=== PATIENT | female | born 1950 | race African-American/Black ===

== ENCOUNTER 2017-09-14 08:32 | Emergency (ER) | payer MEDICARE ==
--- NOTE | 2017-09-14 09:26 | RAD ---
RIGHT FOOT 3 VIEWS: Date: 09/14/17 HISTORY: 67-year-old female with right foot pain following a trip and fall. FINDINGS: Degenerative and osteoarthrosis changes are noted of the right foot. No evidence for acute fracture. IMPRESSION: Degenerative changes without acute fracture or dislocation. POS: MARIA E
--- NOTE | 2017-09-14 09:27 | RAD ---
RADIOGRAPH CHEST 2 VIEWS: HISTORY: 67-year-old female with acute traumatic chest pain from fall. FINDINGS: The thoracic aorta is tortuous and ectatic. There is no evidence of air space density, pneumothorax, or pulmonary edema. There is no cardiomegaly or pleural effusion. There are sternotomy wires, and multiple surgical clips in the anterior mediastinum. IMPRESSION: 1. No acute cardiopulmonary findings. 2. Ectasia of thoracic aorta. 3. Status post coronary artery bypass graft surgery as evidence for coronary atherosclerotic disease . callie [] POS: MARIA E
== END 2017-09-14 09:44 | disposition home or self-care (01) ==
LOC: ERS 08:32
DX: S23.41XA Sprain of ribs, initial encounter (principal); S90.31XA Contusion of right foot, initial encounter; I48.91 Unspecified atrial fibrillation; I11.0 Hypertensive heart disease with heart failure; I50.9 Heart failure, unspecified; I25.10 Atherosclerotic heart disease of native coronary artery without angina pectoris; D86.9 Sarcoidosis, unspecified; E11.9 Type 2 diabetes mellitus without complications; E78.5 Hyperlipidemia, unspecified; J45.909 Unspecified asthma, uncomplicated; W01.0XXA Fall on same level from slipping, tripping and stumbling without subsequent striking against object, initial encounter
CPT/HCPCS: 71020

== ENCOUNTER 2018-10-05 10:03 | Emergency (ER) | payer MEDICARE ==
--- NOTE | 2018-10-05 11:59 | RAD ---
2 VIEW CHEST: Date: 10/05/18 COMPARISON: 09/14/17. INDICATION: Cough with chest pain. FINDINGS: There is mild interstitial prominence of the perihilar distribution bilaterally. No effusion or discr ete pneumothorax. Post sternotomy change present. Cardiomediastinal silhouette is similar. IMPRESSION: Findings favoring interstitial edema. The possibility of pneumonitis is not excluded. Correlate clini margie. Imaging follow-up may be obtained for continued assessment. POS: MARIA E
== END 2018-10-05 11:45 | disposition home or self-care (01) ==
LOC: SCSER 10:03
DX: R05 Cough (principal); R07.2 Precordial pain; I48.91 Unspecified atrial fibrillation; I25.10 Atherosclerotic heart disease of native coronary artery without angina pectoris; E78.5 Hyperlipidemia, unspecified; J45.909 Unspecified asthma, uncomplicated
CPT/HCPCS: 71046; 87804; 93005

== ENCOUNTER 2019-11-20 13:24 | Inpatient (IN) | payer MEDICARE ==
--- NOTE | 2019-11-20 15:52 | RAD ---
Exam: Chest one view HISTORY:Fever. Chills. Weakness Comparison: 12/19/2016 FINDINGS: Cardiac silhouette:Upper normal cardiac silhouette. Stable sternotomy wires. Aorta: Stable elongation of the aorta with atherosclerosis of the aortic knob Pulmonary vessels: Normal Costophrenic angles: Clear LUNGS: No masses or consolidation. Stable calcified lymph nodes in the left hilum. Pneumothorax: None Osseous abnormalities: None IMPRESSION: 1. No acute cardiopulmonary process. 2. Atherosclerosis.
[2019-11-20] MEDS ORDERED: Iopamidol-370 76% 500 ML 1 ML ONE (15:54)
[2019-11-20] MEDS ORDERED: Acetaminophen 500 MG TAB ONE (15:58)
[2019-11-20 16:21] LABS: Hemoglobin 14.5 g/dL (12.0-16.0); Mean Corpuscular HGB CONC 34.9 g/dL (32.0-36.0); Mean Corpuscular Hemoglobin 33.5 pg (27.0-31.0); Mean Corpuscular Volume 96.1 fL (78.0-98.0); Mean Platelet Volume 7.4 fL (7.4-10.4); Platelet Count 175 thou/uL (130-400); Red Blood Cell (RBC) Count 4.32 mill/uL (4.20-5.40); White Blood Cell (WBC) Count 17.1 thou/uL (4.8-10.8)
[2019-11-20 16:43] LABS: Band 12 % (5-11); Lymphocytes 6 % (21-51); MDiff Complete? YES; Monocytes 4 % (0-10); Neutrophil 78 % (42-75); Platelet Morphology Comment Appears Adequate; RBC Morphology Normal
[2019-11-20 16:46] LABS: ALT (SGPT) 11 U/L (8-55); AST (SGOT) 14 U/L (5-34); Alkaline Phosphatase 64 U/L (40-110); Anion Gap 17 mmol/L (10-20); BUN (Urea Nitrogen) 13 mg/dL (9.8-20.1); Bilirubin, Total 2.2 mg/dL (0.2-1.2); Calc. Creatinine Clearance 0 mL/min (70-130); Calcium 9.5 mg/dL (7.8-10.44); Carbon Dioxide 22 mmol/L (23-31); Chloride 101 mmol/L (98-107); Estimated GFR-MDRD 65; Globulin 2.8 g/dL (2.4-3.5); Glucose 170 mg/dL (83-110); Potassium 3.1 mmol/L (3.5-5.1); Protein, Total 6.8 g/dL (6.0-8.3); Sodium 137 mmol/L (136-145)
--- NOTE | 2019-11-20 17:11 | CT ---
CT OF THE ABDOMEN AND PELVIS WITH IV CONTRAST INDICATION: Abdominal pain with fever and weakness COMPARISON: None FINDINGS: ABDOMEN: Lung bases: There are calcified lymph nodes within the left hilar region. There are prominent coronar y artery and thoracic aortic calcifications. Liver: No focal lesion. Gallbladder: There are numerous stones within the gallbladder. Pancreas: Normal. Adrenal glands: Normal. Spleen: There are 2 small cysts within the spleen. One of the largest measures 2 cm on image 16 of se ramon 2. Kidneys and ureters: Normal. No hydronephrosis. Vasculature: There are mild vascular calcifications seen involving the visualized vasculature. Lymph nodes:No lymphadenopathy. Free fluid in abdomen:No free fluid is evident. PELVIS: Small and large bowel: Normal Appendix:Not definitely seen Bladder: Normal. Rectal and perirectal soft tissues:Normal. Reproductive structures: Not visualized, presumed to be surgically absent Free fluid in pelvis: No free fluid is evident. Lymphadenopathy pelvis: No lymphadenopathy is evident. Osseous structures: There are bilateral pars defects at L5 with grade 1 anterolisthesis. There is sc attered degenerative and osteoarthritic changes. Soft tissues:Normal. IMPRESSION: 1. No definite acute abnormality demonstrated. 2. Cholelithiasis 3. Splenic cysts 4. Bilateral pars defects at L5 with grade 1 anterolisthesis. 5. Findings of prior granulomatous disease 6. Prominent vascular calcifications of the coronary artery and thoracic aorta.
[2019-11-20] MEDS ORDERED: Cefepime 2 GM in Sodium Chloride 0.9% 100 ML IVPB ONE (17:45)
[2019-11-20] MEDS ORDERED: Sodium Chloride 0.9% 1,000 ML IV SCH (17:45)
[2019-11-20] MEDS ORDERED: Vancomycin HCl 1.75 GM in Sodium Chloride 0.9% 500 ML IVPB ONE (17:45)
[2019-11-20 18:15] LABS: Bilirubin Negative (Negative); Blood, Urine Negative (Negative); Clarity Clear (Clear); Glucose, Urine (Dipstick) Normal (Negative); Leukocyte Negative Leu/uL (Negative); Nitrite Negative (Negative); Protein, Urine (Dipstick) Negative (Neg-Trace); Urobilinogen Normal mg/dL (Less than 2)
--- NOTE | 2019-11-20 18:55 | PDOC.FPRHP ---
- History of Present Illness Chief Complaint: Weakness History of Present Illness: Patient is a 69 y/o female who presents to the ED for a 1D history of weakness and shaking chills. The patient states that she felt at her baseline when she awoke earlier this morning, but that several hours later she began to feel shaking chills and generalized weakness, which prompted her to stay in bed for much of the day. The addition of multiple blankets did not stop her shaking chills. This has never happened to her in the past, and she denied any additional symptoms, specifically with regard to JOHNSON, visual disturbances, auditory disturbances, rhinorrhea, epistaxis, sinus congestion, N/V/ABD Pain, constipation, dysuria, hematuria, new-onset rashes or ulcers, itching, myalgias , trauma/falls, recent illnesses or sick contacts. She did admit to frequent diarrhea, but states that this at her baseline. Patient states that she received her flu shot this year, and has not had any recent travel or changes in diet. ED Course: s/p Vancomycin, Cefepime, NS Bolus @ 30 ml/kg WBCs: 17.1 LA: 3.3 > 3.4 Influenza A&B: Negative CT ABD/Pelvis: NAF - Allergies/Adverse Reactions Allergies Allergy/AdvReac Type Severity Reaction Status Date / Time bacitracin Allergy Verified 08/27/14 05:18 latex Allergy "break Verified 03/21/15 13:37 out; tongue swells" neomycin Allergy Verified 08/27/14 05:18 polymyxin B Allergy Verified 08/27/14 05:18 - Home Medications Medication Instructions Recorded Confirmed Type Atorvastatin Calcium [Lipitor] 40 mg PO QPM 08/27/14 12/19/16 History Ezetimibe [Zetia] 10 mg PO HS 08/27/14 12/19/16 History Isosorbide Mononitrate [Isosorbide 30 mg PO DAILY 08/27/14 12/19/16 History Mononitrate ER] Metoprolol Succinate [Toprol XL] 50 mg PO DAILY #0 tab 08/27/14 12/19/16 Rx Valsartan/Hydrochlorothiazide 1 tablet PO DAILY 08/27/14 12/19/16 History [Diovan HCT] predniSONE 10 mg PO QAM-WM 08/27/14 12/19/16 History Aspirin [Aspirin EC] 81 mg PO DAILY 03/21/15 12/19/16 History Diltiazem HCl [Taztia XT] 1 cap PO DAILY 12/19/16 12/19/16 History Linagliptin [Tradjenta] 5 mg PO DAILY 12/19/16 12/19/16 History Nitroglycerin [Nitrostat] 0.4 mg PO PRN PRN 12/19/16 12/19/16 History metFORMIN HCl [Metformin ER 2,000 mg PO HS 12/19/16 12/19/16 History Gastric] - History PMHx: Sarcoidosis, DM2, HTN, Hypothyroidism, CHF PSHx: CABG (2005) FHx: Sarcoidosis (Daughter) Colon Cancer (Mother) Social: Denies x3 Code: Full - Review of Systems General: reports: fever/chills, fatigue Eyes: denies: vision changes ENT: denies: nasal congestion, rhinorrhea Respiratory: denies: cough, congestion, shortness of breath Cardiovascular: denies: chest pain, palpitation Gastrointestinal: reports: diarrhea. denies: nausea, vomiting, constipation, abdominal pain, GI bleeding Genitourinary: denies: dysuria, discharge Skin: denies: rashes, lesions, itching Musculoskeletal: denies: swelling Neurological: denies: syncope - Vital signs BP: [111/69] HR: [78] RR: [21] Tmax: [100.7] Pox: [97]% on [Room] Wt: [73 kg] - Physical Exam Constitutional: NAD, awake, alert and oriented, well developed HEENT: normocephalic and atraumatic, PERRLA, conjunctiva clear, no scleral icterus, grossly normal vision, TM's clear and intact, grossly normal hearing, normal nasal mucosa, MMM, oropharynx clear, other (Poor Dentition) Neck: supple, FROM, trachea midline, no LAD Chest: no-tender to palpation, no lesions Heart: RRR, normal S1/S2, no murmurs/rubs/gallops, pulses present, no edema Lungs: CTAB, no respiratory distress, good air movement, no rales/rhonchi, no wheezing, no retractions Abdomen: soft, non-tender, bowel sounds present, no masses/distention, no hernias Musculoskeletal: normal structure, ROM grossly normal Neurological: no focal deficit, normal sensation Skin: no rash/lesions, no jaundice Heme/Lymphatic: no unusual bruising or bleeding, no purpura, no petechia, no LAD Psychiatric: normal mood and affect, good judgment and insight, intact recent and remote memory FMR H&P: Results - Labs Result Diagrams: 11/20/19 16:08 11/20/19 16:08 Lab results: WBC 17.1 thou/uL (4.8-10.8) H 11/20/19 16:08 Hgb 14.5 g/dL (12.0-16.0) 11/20/19 16:08 Hct 41.6 % (36.0-47.0) 11/20/19 16:08 MCV 96.1 fL (78.0-98.0) 11/20/19 16:08 Plt Count 175 thou/uL (130-400) 11/20/19 16:08 Band Neuts % (Manual) 12 % (5-11) H 11/20/19 16:08 Sodium 137 mmol/L (136-145) 11/20/19 16:08 Potassium 3.1 mmol/L (3.5-5.1) L 11/20/19 16:08 Chloride 101 mmol/L (98-107) 11/20/19 16:08 Carbon Dioxide 22 mmol/L (23-31) L 11/20/19 16:08 BUN 13 mg/dL (9.8-20.1) 11/20/19 16:08 Creatinine 1.02 mg/dL (0.6-1.1) 11/20/19 16:08 Glucose 170 mg/dL (83-110) H 11/20/19 16:08 Lactic Acid 3.3 mmol/L (0.5-2.2) H 11/20/19 16:08 Calcium 9.5 mg/dL (7.8-10.44) 11/20/19 16:08 Total Bilirubin 2.2 mg/dL (0.2-1.2) H 11/20/19 16:08 AST 14 U/L (5-34) 11/20/19 16:08 ALT 11 U/L (8-55) 11/20/19 16:08 Alkaline Phosphatase 64 U/L (40-110) 11/20/19 16:08 Serum Total Protein 6.8 g/dL (6.0-8.3) 11/20/19 16:08 Albumin 4.0 g/dL (3.4-4.8) 11/20/19 16:08 Lipase 12 U/L (8-78) 11/20/19 16:08 Urine Ketones Negative mg/dL (Negative) 11/20/19 17:56 Urine Blood Negative (Negative) 11/20/19 17:56 Urine Nitrite Negative (Negative) 11/20/19 17:56 Ur Leukocyte Esterase Negative Ce/uL (Negative) 11/20/19 17:56 - Radiology Interpretation CT scan - abdomen Status: report reviewed by me (EDIS) FMR H&P: A/P - Problem List (1) Viral syndrome Current Visit: Yes Status: Acute (2) CAD (coronary artery disease) Current Visit: No Status: Chronic Code(s): I25.10 - ATHSCL HEART DISEASE OF [place] CORONARY ARTERY W/O ANG PCTRS Qualifiers: Coronary Disease-Associated Artery/Lesion type: bypass graft [place] vs. transplanted heart: [place] heart Associated angina: with stable angina Qualified Code(s): I25.708 - Atherosclerosis of coronary artery bypass graft(s) , unspecified, with other forms of angina pectoris (3) HTN (hypertension) Current Visit: No Status: Chronic Code(s): I10 - ESSENTIAL (PRIMARY) HYPERTENSION Qualifiers: Hypertension type: essential hypertension Qualified Code(s): I10 - Essential (primary) hypertension (4) Sarcoidosis Current Visit: No Status: Chronic Code(s): D86.9 - SARCOIDOSIS, UNSPECIFIED (5) Diabetes mellitus Current Visit: No Status: Chronic Code(s): E11.9 - TYPE 2 DIABETES MELLITUS WITHOUT COMPLICATIONS Qualifiers: Diabetes mellitus type: type 2 Diabetes mellitus mcc insulin use: without mcc use Diabetes mellitus complication status: with unspecified complications (6) Hypokalemia Current Visit: Yes Status: Acute Code(s): E87.6 - HYPOKALEMIA - Plan Patient is a 69 y/o female who presents to the ED for evaluation of weakness and shaking chills. 1. Viral Syndrome, Acute -Patient met SIRS Criteria while in ED - no additional complaints other than weakness and chills -s/p Vancomycin, Cefepime and NS @ 30 ml/kg -Physical exam unremarkable -CT ABD/Pelvis: NAF -Influenza A&B: Negative -UA: WNL -UCx: Pending -BCx: Pending -Procal: Pending -Lactic Acid: Pending -RVP: Pending 2. Sarcoidosis -Per patient, stable and well controlled with daily Predisone 10 mg -Will initiate Stress Dosing of Prednisone 40 mg X5 in AM 3. DM2 -Will continue home medication regimen -Accuchecks ACHS -Hypoglycemia Protocol 4. HTN -Will continue home medication regimen 5. CAD -Will continue home medication regimen 6. Hypokalemia -s/p K-Dur 60 mEq PO -Will continue to monitor PCP: JUVENTINO Holt Code: Full Diet: CC Activity: Ambulate w/ Assist IVF: LR @ 110 ml/hr VTE PPx: SCDs and Lovenox Dispo: Patient is stable and admitted to the Medical Floor for observation due to suspected Acute Viral Syndrome. Will continue fluid resuscitation and Stress Dosing of Prednisone as per above. Await lab results and tailor plan of care accordingly. Expected LOS < 48H. FMR H&P: Upper Level - Plan Date/Time: 11/20/19 1032 PCP: Jonathon HPI: This is a 69 yo F w/ PMH including CAD s/p CABG 2016, DM2, HTN, and Sarcoidosis who came into the ED tonight for evaluation of general malaise. She states maybe some chills but no fevers, sweats. Denies cough or sinus congestion. Denies burning or blood with urination. Denies abdominal pain although she does have chronic diarrhea, 2-3 times per day. She has had decreased appetite. She denies blood in stool or changes to her usual pattern. Denies sick contacts, has had flu shot this year. Denies CP or palpitations. Denies weakness affecting one side or the other, facial droop, or disequilibrium. REVIEW OF SYSTEMS: Gen: see hpi Neuro: no numbness/tingling, no weakness, denies headache Eyes: no visual changes ENT: no hearing changes, no sore throat, no runny nose Resp: no cough, no SOB, no wheeze Card: denies chest pain, no palpitations GI: no N/V/D, no abdominal pain : no dysuria, no hematuria MSK: no myalgias, no joint pain/stiffness Skin: no rash, no erythema PHYSICAL EXAMINATION: General: NAD, alert and oriented x3 HEENT: PERRLA, EOMI, normal sclera, oropharynx without erythema or exudate Neck: Supple. Full ROM. Heart/Cardiovascular System: RRR, Cap refill < 3 seconds, no rub, no murmur Lungs/Respiratory System: clear to auscultation bilaterally. No increased work of breathing. Room air. Abdomen/Gastro-Intestinal System: no abdominal tenderness, normal bowel sounds Extremities: Warm extremities. No cyanosis or edema. Neuro: No gross deficits appreciated. CN 2-12 grossly intact. NIHSS 0. No limb drift, no ataxia. Patient able to walk to wall and back but says she just feels weak Psychiatry: Awake, Alert and cooperative with exam Skin: No lesions, rashes, or ulcers Musculoskeletal: Full ROM A/P: # Sepsis 2/2 suspected viral syndrome - check procal, RVP, could be flu although rapid was negative - LA 3.3 -> 3.4 s/p 30mg/kg bolus, WBC 17.9, Tmax 101.7, UA neg - suspect dehydration, high spec grav on urine, decreased appetite today, this and chronic steroids could be source of increased WBC - CT/abd pelv no acute process, cholelithiasis, neg murphys - poor dentition, bacteremia is possible, no murmur on exam - s/p vanc, cefepime in ED will hold on abx for now until source identified # Sarcoidosis - on pred 10mg daily, will stress dose for now - per patient, pulm thinks sarcoidosis is well controlled and she will meet with him next week to discuss tapering off steroids # Hx of CAD - Trend trops # HTN, DM2 - home meds # Hypokalemia - Replete Fluids: LR 110 Code status: full PPx: Lovenox Dispo: Obs Addendum - Attending - Attending Attestation Date/Time: 11/20/19 [id number] I personally evaluated the patient and discussed the management with Dr. Penny I agree with the History, Examination, Assessment and Plan documented above with any addition or exceptions noted below -69 yo F with h/o CAD s/p CABG 2006 , DM2, HTN, and Sarcoidosis who came into the ED tonight for evaluation of general malaise and chills. Denies cough, sinus congestion, dysuria or hematuria , URI symptoms, abdominal pain although she does have chronic diarrhea, 2-3 times per day. She has had decreased appetite. She denies blood in stool or changes to her usual patter. PMH/PSH/Meds/SH reviewed and agree with resident's documentation. T 101.2 in ER P87 BP 134/67 RR19 Exam repeated by me and agree with resident's findings. Labs: WBC=17.1, BUN/Cr=13/1.02, Cmid=187, Lactic acid=3.3, U/A= negative, flu = negative, CXR- no acute findings. A/P: 1) SIRS- no source found. Will check RVP, procal. Blood and urine cultures pending. Received 1 dose of abx in ER; hold further abx for now. 2) DM- continue home meds, 3) HTN- continue home meds.
[2019-11-20 19:15] LABS: Lactic Acid 3.4 mmol/L (0.5-2.2)
[2019-11-20] MEDS ORDERED: Cefepime 2 GM VIAL ONE (20:37)
[2019-11-20] MEDS ORDERED: Potassium Chloride 20 MEQ TAB PO SCH (21:15)
[2019-11-20] MEDS ORDERED: Ondansetron ODT 4 MG TAB PO PRN (22:06)
[2019-11-20] MEDS ORDERED: Dextrose 5% in Water 1,000 ML IV PRN (22:06)
[2019-11-20] MEDS ORDERED: Dextrose 50% Abboject 50 ML SYRINGE SLOW IVP PRN (22:06)
[2019-11-20 22:13] VITALS: BMI 28.5
[2019-11-20] MEDS: Lactated Ringer's 1,000 ML IV SCH (22:24)
[2019-11-20] MEDS ORDERED: Famotidine 20 MG TAB PO SCH (22:30)
[2019-11-20] MEDS ORDERED: predniSONE 20 MG TAB PO SCH (22:45)
[2019-11-20] MEDS: HumaLOG 300 UNITS/3 ML VIAL SC PRN (23:10)
[2019-11-21 06:04] LABS: Lactic Acid 1.2 mmol/L (0.5-2.2)
[2019-11-21 06:07] LABS: Anion Gap 11 mmol/L (10-20); BUN (Urea Nitrogen) 11 mg/dL (9.8-20.1); Calc. Creatinine Clearance 75 mL/min (70-130); Calcium 8.3 mg/dL (7.8-10.44); Carbon Dioxide 22 mmol/L (23-31); Chloride 108 mmol/L (98-107); Estimated GFR-MDRD 83; Glucose 200 mg/dL (83-110); Potassium 3.9 mmol/L (3.5-5.1); Sodium 137 mmol/L (136-145)
[2019-11-21 06:13] LABS: Hemoglobin 12.8 g/dL (12.0-16.0); Mean Corpuscular HGB CONC 34.4 g/dL (32.0-36.0); Mean Corpuscular Hemoglobin 33.7 pg (27.0-31.0); Mean Corpuscular Volume 98.1 fL (78.0-98.0); Platelet Count 162 thou/uL (130-400); RBC Distribution Width 12.2 % (11.5-14.5); Red Blood Cell (RBC) Count 3.81 mill/uL (4.20-5.40)
[2019-11-21 06:37] LABS: Band 2 % (5-11); MDiff Complete? YES; Neutrophil 98 % (42-75); Platelet Morphology Comment Appears Adequate
[2019-11-21] MEDS: Lactated Ringer's 1,000 ML IV SCH ×2 (07:05→19:05)
--- NOTE | 2019-11-21 07:40 | PDOC.FM ---
- Subjective Subjective: pt resting comfortably, denies pain or fever - Objective Vital Signs & Weight: Vital Signs (12 hours) Temp Pulse Resp BP BP Pulse Ox 11/21/19 05:00 98.5 F 91 18 123/73 94 L 11/20/19 22:25 99.0 F 87 18 134/67 94 L 11/20/19 21:55 99.0 F 87 18 134/67 94 L Weight Weight 75.3 kg I&O: 11/20/19 11/21/19 11/22/19 06:59 06:59 06:59 Intake Total 1000 Balance 1000 Result Diagrams: 11/21/19 05:08 11/21/19 05:08 Phys Exam - Physical Examination Constitutional: NAD HEENT: moist MMs Respiratory: clear to auscultation bilateral Cardiovascular: no significant murmur Gastrointestinal: no distention Musculoskeletal: pulses present Neurological: moves all 4 limbs Lymphatic: no nodes Psychiatric: normal affect Skin: no rash Dx/Plan (1) Hypokalemia Code(s): E87.6 - HYPOKALEMIA Status: Acute (2) Viral syndrome Status: Acute (3) Diabetes mellitus Code(s): E11.9 - TYPE 2 DIABETES MELLITUS WITHOUT COMPLICATIONS Status: Chronic Qualifiers: Diabetes mellitus type: type 2 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 insulin use: without middle or intermediate school principal use Diabetes mellitus complication status: with unspecified complications (4) HTN (hypertension) Code(s): I10 - ESSENTIAL (PRIMARY) HYPERTENSION Status: Chronic Qualifiers: Hypertension type: essential hypertension Qualified Code(s): I10 - Essential (primary) hypertension (5) Sarcoidosis Code(s): D86.9 - SARCOIDOSIS, UNSPECIFIED Status: Chronic - Plan Plan: viral syndrome - elevated wbc, RVP neg, CXR neg, UA wnl - LA 3.3 -> 3.4 s/p 30mg/kg bolus, WBC 17.9, Tmax 101.7, procal 6 - CT/abd pelv no acute process, cholelithiasis, neg murphys - restart broad spectrum abx, consider RUQ US Sarcoidosis - on pred 10mg daily, cont stress dose Hx of CAD - trops neg HTN, DM2 - home meds Hypokalemia - Replete Fluids: LR 110 Code status: full PPx: Lovenox Dispo: continue eval and treatment Addendum - Attending - Attending Attestation Date/Time: 11/21/19 2121 I personally evaluated the patient and discussed the management with Dr. Holt I agree with the History, Examination, Assessment and Plan documented above with any addition or exceptions noted below. Patient clinically markedly improved C/O pain Left calf r/o DVT and look further into biliary tract etiology for fever.
[2019-11-21] MEDS: Acetaminophen 325 MG TAB PO PRN (08:42)
[2019-11-21] MEDS ORDERED: Non-Formulary Item 1 EACH (Valsartan/Hydrochlorothiazide [Diovan Hct] 1 TABLET) PO SCH (09:00)
[2019-11-21] MEDS ORDERED: sitaGLIPtin Phosphate 25 MG TAB PO SCH (09:00)
[2019-11-21] MEDS: Valsartan 80 MG TAB PO SCH (10:24)
[2019-11-21] MEDS: Isosorbide Mononitrate (ER) 30 MG TAB PO SCH (10:25)
[2019-11-21] MEDS: Hydrochlorothiazide 25 MG TAB PO SCH (10:25)
[2019-11-21] MEDS: metFORMIN 500 MG TAB PO SCH ×2 (10:26→17:00)
[2019-11-21] MEDS: Aspirin 81 mg Enteric Coated Tablet PO SCH (10:26)
[2019-11-21] MEDS: Potassium Chloride 20 MEQ TAB PO SCH (10:26)
[2019-11-21] MEDS: Alogliptin 6.25 MG TAB PO SCH ×2 (10:26→20:18)
[2019-11-21] MEDS: Enoxaparin Sodium 40 MG/0.4 ML SYRINGE SC SCH (10:29)
[2019-11-21] MEDS: predniSONE 20 MG TAB PO SCH (10:51)
[2019-11-21 11:22] LABS: ALT (SGPT) 9 U/L (8-55); AST (SGOT) 12 U/L (5-34); Albumin 3.3 g/dL (3.4-4.8); Alkaline Phosphatase 54 U/L (40-110); Anion Gap 12 mmol/L (10-20); BUN (Urea Nitrogen) 12 mg/dL (9.8-20.1); Bilirubin, Total 2.4 mg/dL (0.2-1.2); Calc. Creatinine Clearance 75 mL/min (70-130); Calcium 8.6 mg/dL (7.8-10.44); Carbon Dioxide 21 mmol/L (23-31); Chloride 106 mmol/L (98-107); Estimated GFR-MDRD 83; Globulin 2.5 g/dL (2.4-3.5); Glucose 275 mg/dL (83-110); Lipase 11 U/L (8-78); Potassium 3.8 mmol/L (3.5-5.1); Protein, Total 5.8 g/dL (6.0-8.3); Sodium 135 mmol/L (136-145)
[2019-11-21] MEDS ORDERED: cefTRIAXone\\ROCEPHIN 1 GM VIAL IM SCH (12:00)
[2019-11-21] MEDS: cefTRIAXone\\ROCEPHIN 1 GM in Sodium Chloride 0.9% 100 ML IVPB SCH (12:45)
--- NOTE | 2019-11-21 16:00 | ULT ---
EXAM: US Gallbladder RUQ CLINICAL HISTORY: Fever. Right upper quadrant pain.. COMPARISON: None. FINDINGS: Pancreas: The head and proximal pancreatic body have a normal echotexture. The remainder the pancrea s is obscured by bowel gas Liver:Hepatic parenchyma has a normal echotexture. No hepatic masses or intrahepatic biliary dilatati on. Right hepatic lobe: 15.4 cm cm Gallbladder: Multiple echogenic foci with shadowing compatible with gallstones. Gallbladder wall thic kness is 0.36 cm. Kirk's sign:Negative. Portal Vein: Patent. Appropriate directional flow Bile ducts: 0.6 cm common bile duct diameter Right kidney: No hydronephrosis. Right kidney measures 11.6 cm in length. IMPRESSION: Sonographic evidence of cholelithiasis. Gallbladder wall thickness is at the upper limits of normal. If there is concern for cholecystitis, consider HIDA scan Transcribed Date/Time: 11/21/2019 4:24 PM
--- NOTE | 2019-11-21 16:53 | ULT ---
EXAM: RIGHT LOWER EXTREMITY VENOUS DUPLEX ULTRASOUND INCLUDING COLOR AND SPECTRAL DOPPLER IMAGIN11/21/19 HISTORY: Right calf tenderness. FINDINGS: Exam performed from groin to ankle including the visualized greater saphenous, common femoral, superf icial femoral, profunda femoral, popliteal, trifurcation and posterior tibial vein regions. There is phasic flow at all levels with normal compressibility and normal augmentation. No intraluminal thromb us. IMPRESSION: No evidence for deep venous thrombosis. POS: TPC
[2019-11-21] MEDS: HumaLOG 300 UNITS/3 ML VIAL SC PRN ×2 (17:00→20:19)
[2019-11-21] MEDS ORDERED: Vancomycin 1.5 GRAM/300 ML BAG 1.5 GM in Premix Bag 1 BAG IVPB SCH (18:00)
[2019-11-21] MEDS: Ezetimibe 10 MG TAB PO SCH (20:18)
[2019-11-21] MEDS: Atorvastatin Calcium 40 MG TAB PO SCH (20:18)
[2019-11-21] MEDS: Famotidine 20 MG TAB PO SCH (20:19)
[2019-11-22] MEDS: Lactated Ringer's 1,000 ML IV SCH ×3 (01:19→20:53)
[2019-11-22] MEDS: HumaLOG 300 UNITS/3 ML VIAL SC PRN ×3 (05:45→20:58)
[2019-11-22] MEDS ORDERED: Non-Formulary Item 1 EACH (Sitagliptin Phos/Metformin Hcl [Janumet] 1 TABLET) PO SCH (08:04)
--- NOTE | 2019-11-22 08:09 | PDOC.FM ---
- Subjective Subjective: pt resting comfortably in bed, denies fever, pain anywhere. denies recent dental infection, skin break, sob, chest pain - Objective Vital Signs & Weight: Vital Signs (12 hours) Temp Pulse Resp BP Pulse Ox 11/22/19 07:51 98 11/22/19 07:46 98.4 F 76 14 124/76 11/22/19 04:00 97.9 F 79 18 125/71 95 11/22/19 00:00 98 F 80 18 109/64 95 Weight Weight 75.3 kg I&O: 11/21/19 11/22/19 11/23/19 06:59 06:59 06:59 Intake Total 1000 4104 Balance 1000 4104 Result Diagrams: 11/22/19 08:49 11/22/19 08:49 Phys Exam - Physical Examination Constitutional: NAD HEENT: moist MMs Neck: no nodes, no JVD, supple Respiratory: clear to auscultation bilateral Cardiovascular: RRR 2/6 alina Gastrointestinal: soft, non-tender Musculoskeletal: no edema, pulses present Neurological: non-focal, moves all 4 limbs Lymphatic: no nodes Psychiatric: normal affect Deviation from normal: mild RLE erythema Dx/Plan (1) Hypokalemia Code(s): E87.6 - HYPOKALEMIA Status: Acute (2) Viral syndrome Status: Acute (3) Diabetes mellitus Code(s): E11.9 - TYPE 2 DIABETES MELLITUS WITHOUT COMPLICATIONS Status: Chronic Qualifiers: Diabetes mellitus type: type 2 Diabetes mellitus extermination inspector insulin use: without chcf use Diabetes mellitus complication status: with unspecified complications (4) HTN (hypertension) Code(s): I10 - ESSENTIAL (PRIMARY) HYPERTENSION Status: Chronic Qualifiers: Hypertension type: essential hypertension Qualified Code(s): I10 - Essential (primary) hypertension (5) Sarcoidosis Code(s): D86.9 - SARCOIDOSIS, UNSPECIFIED Status: Chronic - Plan Plan: Gram neg. bacteremia - elevated wbc, febrile, +BCx. RVP neg, CXR neg, UA wnl - LA 3.3 -> 3.4 s/p 30mg/kg bolus, WBC 17.9, Tmax 101.7, procal 6 - CT/abd pelv no acute process, cholelithiasis, neg RUQ US - broad spectrum abx - TTE today to eval for endocarditis Sarcoidosis - on pred 10mg daily, cont stress dose Hx of CAD - trops neg HTN, DM2 - home meds Hypokalemia - Replete Fluids: LR 110 Code status: full PPx: Lovenox Dispo: continue eval and treatment Addendum - Attending - Attending Attestation Date/Time: 11/22/19 4915 I personally evaluated the patient and discussed the management with Dr. Holt I agree with the History, Examination, Assessment and Plan documented above with any addition or exceptions noted below. Note 2/2 positive blood culture for corynbacterium will evaluate for endocarditis and left lower leg tenderness negative US slight erythema to left inner thigh consider cellulitis. Consider consult ID as well.
[2019-11-22] MEDS: Enoxaparin Sodium 40 MG/0.4 ML SYRINGE SC SCH (08:28)
[2019-11-22] MEDS: Potassium Chloride 20 MEQ TAB PO SCH (08:29)
[2019-11-22] MEDS: metFORMIN 500 MG TAB PO SCH ×2 (08:29→16:50)
[2019-11-22] MEDS: Isosorbide Mononitrate (ER) 30 MG TAB PO SCH (08:30)
[2019-11-22] MEDS: predniSONE 20 MG TAB PO SCH (08:30)
[2019-11-22] MEDS: Hydrochlorothiazide 25 MG TAB PO SCH (08:31)
[2019-11-22] MEDS: Alogliptin 6.25 MG TAB PO SCH ×2 (08:31→20:56)
[2019-11-22] MEDS: Aspirin 81 mg Enteric Coated Tablet PO SCH (08:33)
[2019-11-22] MEDS: Valsartan 80 MG TAB PO SCH (08:33)
[2019-11-22 09:14] LABS: #Lymphocytes 0.9 thou/uL (1.20-3.40); #Monocytes 0.7 thou/uL (0.11-0.59); #Neutrophils 14.1 thou/uL (1.40-6.50); %Eosinophils 0.2 % (0.0-10.0); %Lymphocytes 5.7 % (21.0-51.0); %Monocytes 4.5 % (0.0-10.0); %Neutrophils 89.5 % (42.0-75.0); Hemoglobin 12.1 g/dL (12.0-16.0); Mean Corpuscular HGB CONC 34.3 g/dL (32.0-36.0); Mean Corpuscular Hemoglobin 33.6 pg (27.0-31.0); Mean Corpuscular Volume 97.9 fL (78.0-98.0); Mean Platelet Volume 7.5 fL (7.4-10.4); Platelet Count 166 thou/uL (130-400); White Blood Cell (WBC) Count 15.7 thou/uL (4.8-10.8)
[2019-11-22 09:50] LABS: ALT (SGPT) 9 U/L (8-55); AST (SGOT) 12 U/L (5-34); Albumin 3.4 g/dL (3.4-4.8); Alkaline Phosphatase 60 U/L (40-110); Anion Gap 11 mmol/L (10-20); BUN (Urea Nitrogen) 11 mg/dL (9.8-20.1); Bilirubin, Total 1.5 mg/dL (0.2-1.2); Calc. Creatinine Clearance 83 mL/min (70-130); Carbon Dioxide 25 mmol/L (23-31); Chloride 107 mmol/L (98-107); Estimated GFR-MDRD Greater than 90; Globulin 2.2 g/dL (2.4-3.5); Glucose 147 mg/dL (83-110); Potassium 3.5 mmol/L (3.5-5.1); Protein, Total 5.6 g/dL (6.0-8.3); Sodium 139 mmol/L (136-145)
[2019-11-22] MEDS: cefTRIAXone\\ROCEPHIN 1 GM in Sodium Chloride 0.9% 100 ML IVPB SCH (12:21)
[2019-11-22 17:43] LABS: Vancomycin, Trough 7.2 ug/mL
[2019-11-22] MEDS: Vancomycin HCl 750 MG in Sodium Chloride 0.9% 250 ML 250 ML IVPB SCH (19:15)
[2019-11-22] MEDS: Ezetimibe 10 MG TAB PO SCH (20:56)
[2019-11-22] MEDS: Atorvastatin Calcium 40 MG TAB PO SCH (20:56)
[2019-11-22] MEDS: Famotidine 20 MG TAB PO SCH (20:57)
[2019-11-23 05:44] LABS: #Lymphocytes 1.3 thou/uL (1.20-3.40); #Monocytes 0.5 thou/uL (0.11-0.59); #Neutrophils 9.3 thou/uL (1.40-6.50); %Basophils 0.1 % (0.0-1.0); %Eosinophils 0.2 % (0.0-10.0); %Lymphocytes 11.6 % (21.0-51.0); %Monocytes 4.5 % (0.0-10.0); %Neutrophils 83.5 % (42.0-75.0); Hemoglobin 11.5 g/dL (12.0-16.0); Mean Corpuscular HGB CONC 33.2 g/dL (32.0-36.0); Mean Corpuscular Hemoglobin 32.8 pg (27.0-31.0); Mean Corpuscular Volume 98.7 fL (78.0-98.0); Mean Platelet Volume 7.8 fL (7.4-10.4); Platelet Count 170 thou/uL (130-400); RBC Distribution Width 11.9 % (11.5-14.5); Red Blood Cell (RBC) Count 3.51 mill/uL (4.20-5.40); White Blood Cell (WBC) Count 11.1 thou/uL (4.8-10.8)
[2019-11-23] MEDS: Lactated Ringer's 1,000 ML IV SCH (05:51)
[2019-11-23] MEDS: Vancomycin HCl 750 MG in Sodium Chloride 0.9% 250 ML 250 ML IVPB SCH ×2 (05:52→17:33)
[2019-11-23] MEDS: HumaLOG 300 UNITS/3 ML VIAL SC PRN ×3 (05:58→17:15)
[2019-11-23 06:03] LABS: ALT (SGPT) 9 U/L (8-55); AST (SGOT) 12 U/L (5-34); Albumin 3.2 g/dL (3.4-4.8); Alkaline Phosphatase 53 U/L (40-110); Anion Gap 9 mmol/L (10-20); BUN (Urea Nitrogen) 12 mg/dL (9.8-20.1); Bilirubin, Total 0.9 mg/dL (0.2-1.2); Calc. Creatinine Clearance 80 mL/min (70-130); Calcium 8.8 mg/dL (7.8-10.44); Carbon Dioxide 26 mmol/L (23-31); Chloride 107 mmol/L (98-107); Estimated GFR-MDRD 89; Globulin 2.6 g/dL (2.4-3.5); Glucose 142 mg/dL (83-110); Potassium 3.8 mmol/L (3.5-5.1); Protein, Total 5.8 g/dL (6.0-8.3); Sodium 138 mmol/L (136-145)
--- NOTE | 2019-11-23 08:03 | PDOC.FM ---
- Subjective Subjective: pt reports L sided rib pain with deep breaths, mild dyspnea - Objective Vital Signs & Weight: Vital Signs (12 hours) Temp Pulse Resp BP Pulse Ox 11/23/19 07:51 98.5 F 57 L 18 145/81 H 94 L 11/23/19 00:00 98 F 71 16 115/72 94 L Weight Weight 75.3 kg I&O: 11/22/19 11/23/19 11/24/19 06:59 06:59 06:59 Intake Total 4104 3285 Balance 4104 3285 Result Diagrams: 11/23/19 05:17 11/23/19 05:16 Phys Exam - Physical Examination Constitutional: NAD HEENT: moist MMs Neck: no JVD Respiratory: clear to auscultation bilateral Cardiovascular: RRR Gastrointestinal: no distention Musculoskeletal: no edema Neurological: moves all 4 limbs Psychiatric: normal affect Skin: no rash Dx/Plan (1) Hypokalemia Code(s): E87.6 - HYPOKALEMIA Status: Acute (2) Viral syndrome Status: Acute (3) Diabetes mellitus Code(s): E11.9 - TYPE 2 DIABETES MELLITUS WITHOUT COMPLICATIONS Status: Chronic Qualifiers: Diabetes mellitus type: type 2 Diabetes mellitus halfway insulin use: without halfway use Diabetes mellitus complication status: with unspecified complications (4) HTN (hypertension) Code(s): I10 - ESSENTIAL (PRIMARY) HYPERTENSION Status: Chronic Qualifiers: Hypertension type: essential hypertension Qualified Code(s): I10 - Essential (primary) hypertension (5) Sarcoidosis Code(s): D86.9 - SARCOIDOSIS, UNSPECIFIED Status: Chronic - Plan Plan: corynebacterium bacteremia - elevated wbc, febrile, +BCx. RVP neg, CXR neg, UA wnl - LA 3.3 -> 3.4 s/p 30mg/kg bolus, WBC 17.9, Tmax 101.7, procal 6 - CT/abd pelv no acute process, cholelithiasis, neg RUQ US - broad spectrum abx - TTE today to eval for endocarditis Sarcoidosis - on pred 10mg daily, cont stress dose Hx of CAD - trops neg HTN, DM2 - home meds Hypokalemia - Replete Code status: full PPx: Lovenox Dispo: continue eval and treatment Addendum - Attending - Attending Attestation Date/Time: 11/23/19 1100 I personally evaluated the patient and discussed the management with Dr. Holt I agree with the History, Examination, Assessment and Plan documented above with any addition or exceptions noted below. TTE complete report pending at this time feel prudent to enlist opinion of ID regard positive Blood cult 2/2 corynbacterium further analysis underway with no obvious source yet but clinical course of excellent response to IV antibiotics so doubt contaminant patient defervesed, normalized procalcitonin, WBC trended down to normal s/p initiation antibiotic and rapid clinical improvement .
[2019-11-23] MEDS: Valsartan 80 MG TAB PO SCH (08:17)
[2019-11-23] MEDS: Aspirin 81 mg Enteric Coated Tablet PO SCH (08:18)
[2019-11-23] MEDS: Hydrochlorothiazide 25 MG TAB PO SCH (08:21)
[2019-11-23] MEDS: Alogliptin 6.25 MG TAB PO SCH ×2 (08:22→21:54)
[2019-11-23] MEDS: metFORMIN 500 MG TAB PO SCH ×2 (08:22→17:33)
[2019-11-23] MEDS: Potassium Chloride 20 MEQ TAB PO SCH (08:22)
[2019-11-23] MEDS: Isosorbide Mononitrate (ER) 30 MG TAB PO SCH (08:22)
[2019-11-23] MEDS: predniSONE 20 MG TAB PO SCH (08:23)
[2019-11-23] MEDS: Enoxaparin Sodium 40 MG/0.4 ML SYRINGE SC SCH (08:23)
[2019-11-23] MEDS: Acetaminophen 325 MG TAB PO PRN (08:24)
--- NOTE | 2019-11-23 09:51 | RAD ---
PORTABLE CHEST 1 VIEW: DATE: 11/23/2019. TIME: 9:08 a.m. HISTORY: Chest pain and shortness of breath. COMPARISON: 11/20/2019. FINDINGS: Changes of median sternotomy are again seen. The heart size remains at upper limits of normal. The aorta is tortuous. No lobar consolidation, pneumothoraces, or pleural effusions are identified. Mahi dence of old granulomatous disease is again seen. IMPRESSION: No acute process. POS: OFF
[2019-11-23 10:57] LABS: Reference Lab Name LABCORP
[2019-11-23 10:58] LABS: Ref Lab Test Ordered AEROBIC ID/SENS
[2019-11-23] MEDS: Famotidine 20 MG TAB PO SCH ×2 (11:38→21:55)
[2019-11-23] MEDS: cefTRIAXone\\ROCEPHIN 1 GM in Sodium Chloride 0.9% 100 ML IVPB SCH (13:37)
--- NOTE | 2019-11-23 18:12 | CT ---
CT OF THE THORAX WITHOUT IV CONTRAST INDICATION: Abnormal clinical chest examination with a normal chest radiograph COMPARISON: Chest radiograph dated November 23, [address] of the thorax dated May 15, 2009 FINDINGS: LUNGS: No confluent airspace opacity is present. There are calcified granuloma within the right upper lobe. Pleural spaces: There are small bilateral pleural effusions Lymph nodes: There are numerous calcified lymph nodes within the hilar regions and mediastinum. No pa thologically enlarged lymph nodes are evident. Heart and great vessels: There is postprocedural change of a prior CABG. There is severe vascular jonathan cification involving the coronary arteries and thoracic aorta. Upper abdomen: Cholelithiasis. Adrenal glands are normal appearing. Small splenic cysts are better de tailed on a CT the abdomen and pelvis dated November 20, 2019 Osseous structures: No acute osseous abnormality. IMPRESSION: 1. No confluent airspace opacity to suggest pneumonia. 2. Small bilateral pleural effusions 3. Cholelithiasis
--- NOTE | 2019-11-23 21:30 | CON ---
DATE OF CONSULTATION: 11/23/2019 REASON FOR CONSULTATION: Fever and bacteremia. HISTORY OF PRESENT ILLNESS: Ms. Huston is a 69-year-old patient who has a history of coronary artery disease and bypass graft surgery, type 2 diabetes, hypertension, and atrial fibrillation as well as a history of sarcoidosis on chronic prednisone in the past, who was in her usual state of health until pretty much the day of admission when she developed fairly sudden onset of general malaise, shaking chills. The patient stayed in bed for much of the day and still continued to have chills, had some headaches. No visual symptoms, sore throat, odynophagia, or dysphagia. No dental pain or back pain. No cough or sputum production or chest pain. No abdominal pain or diarrhea. No genitourinary symptoms. No joint symptoms or skin disorder. No neurological symptoms. PAST MEDICAL HISTORY: Sarcoid on prednisone, type 2 diabetes, hypertension, hypothyroidism, and CHF. PAST SURGICAL HISTORY: Bypass graft surgery. FAMILY HISTORY: Sarcoid and colon cancer. SOCIAL HISTORY: No smoking. No alcoholic beverage use. Lives in the area. ALLERGY HISTORY: Bacitracin, latex, neomycin, and polymyxin. MEDICATIONS: At the moment; 1. Alogliptin. 2. Ecotrin. 3. Lipitor. 4. Ceftriaxone. 5. Cardizem. 6. Lovenox. 7. Zetia. 8. Pepcid. 9. Hydrochlorothiazide. 10. Insulin. 11. Imdur. 12. Glucophage. 13. Potassium. 14. Vancomycin. 15. Prednisone is 40 mg daily. PHYSICAL EXAMINATION: VITAL SIGNS: Temperature max 99, currently 97.5, blood pressure 110/67, pulse 76, respirations 16, and O2 saturation 94. SKIN: Not remarkable. No lymphadenopathy. HEENT: Ocular movements conjugate. Oral cavity normal. NECK: Supple. LUNGS: Symmetric air entry. Faint inspiratory crackles, which is diffusely distributed in right and left hemithorax. HEART: S1 and S2. Regular rate. No S3 or S4. ABDOMEN: Soft. Not distended or tender. No ascites. No bladder distention. EXTREMITIES: No joint inflammatory activity. Moves extremities equally. No edema. NEURO: Speech is normal. Orientation is normal. LABORATORY DATA: White cell count 17 and then went down to 11, platelets 170 with hemoglobin 11, MCV 98, 83% neutrophils on arrival, she had bands of 12%. Sodium 138, creatinine 0.77 with normal liver profile. Albumin 3.2. Urinalysis was normal. Vancomycin trough of 7.2. There was a respiratory virus PCR panel, which was negative. The urine culture final negative. Influenza A and B antigen test , negative. Two sets of blood cultures with Corynebacterium, those sets were logged as having been retrieved at the same time of the day. The patient had a chest x -ray with no acute infiltrates noticed. There is an abdomen and pelvis CT with cholelithiasis, splenic cysts and other minor findings. Findings of prior granulomatous disease noted. Lumbar spine x-ray was done quite a few months ago. An abdomen ultrasound with evidence of cholelithiasis, gallbladder wall thickness at the upper limits. ASSESSMENT: 1. History of sarcoid on fairly high dose of prednisone. 2. Type 2 diabetes. 3. Coronary artery disease. 4. Acute onset of fever and chills. 5. Corynebacterium bacteremia. 6. Abnormal lung exam. DISCUSSION: The differential diagnosis includes respiratory viral infection, which was not detected by the test submitted versus transient bacteremia, which has not yet been identified. An opportunistic infection is something to consider in view of her abnormal lung examination and the prednisone given for sarcoidosis, including Pneumocystis, CMV and cryptococcus neoformans. Finally, sarcoidosis with FUO would be another possibility, but that is less likely since the patient had been on corticosteroids. Check CMV DNA, PCR, cryptococcus antigen and check Fungitell. May need a CT of chest since the chest x-ray did not identify these abnormal findings on lung examination. No evidence of intraabdominal inflammatory process or bone and joint inflammatory process. The corynebacterium bacteremia is more likely to represent contamination of the sample and she does not have any foreign body. The organism was isolated on samples that were withdrawn at the same time that raises the question of technical issues with the collection. Corynebacterium striatum and jeikeium can be associated with invasive disease in otherwise healthy persons, but that is less likely. Job ID: [id number] [facility]
[2019-11-23] MEDS: Ezetimibe 10 MG TAB PO SCH (21:54)
[2019-11-23] MEDS: Atorvastatin Calcium 40 MG TAB PO SCH (21:54)
[2019-11-24 05:53] LABS: Vancomycin, Trough 10.5 ug/mL
[2019-11-24] MEDS: Vancomycin HCl 750 MG in Sodium Chloride 0.9% 250 ML 250 ML IVPB SCH (06:49)
--- NOTE | 2019-11-24 08:26 | PDOC.FM ---
- Subjective Subjective: pt ambulating successfully, tolerating po, no complaints - Objective Vital Signs & Weight: Vital Signs (12 hours) Temp Pulse Resp BP Pulse Ox 11/24/19 08:00 98.1 F 66 16 159/84 H 96 Weight Weight 75.3 kg I&O: 11/23/19 11/24/19 11/25/19 06:59 06:59 06:59 Intake Total 3285 2770 Balance 3285 2770 Result Diagrams: 11/23/19 05:17 11/23/19 05:16 Phys Exam - Physical Examination Constitutional: NAD HEENT: moist MMs Neck: full ROM Gastrointestinal: no distention Musculoskeletal: no edema Neurological: moves all 4 limbs Psychiatric: normal affect Skin: no rash Dx/Plan (1) Hypokalemia Code(s): E87.6 - HYPOKALEMIA Status: Acute (2) Viral syndrome Status: Acute (3) Diabetes mellitus Code(s): E11.9 - TYPE 2 DIABETES MELLITUS WITHOUT COMPLICATIONS Status: Chronic Qualifiers: Diabetes mellitus type: type 2 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 RVP neg, CXR neg, UA wnl - LA 3.3 -> 3.4 s/p 30mg/kg bolus, WBC 17.9, Tmax 101.7, procal 6 - CT/abd pelv no acute process, cholelithiasis, neg RUQ US - de-escalate broad spectrum abx - ID consulted, appreciate recs Sarcoidosis - on pred 10mg daily, taper stress dose Hx of CAD - trops neg HTN, DM2 - home meds Hypokalemia - Replete Code status: full PPx: Lovenox Dispo: de-escalate abx, consider dc with outpt fu of opportunistic organism infection. Addendum - Attending - Attending Attestation Date/Time: 11/24/19 1143 I personally evaluated the patient and discussed the management with Dr. Holt I agree with the History, Examination, Assessment and Plan documented above with any addition or exceptions noted below. Patient clinically doing well appreciate input from ID and feel ok to d/c on po antibiotic with close outpt.
[2019-11-24] MEDS: Famotidine 20 MG TAB PO SCH (08:53)
[2019-11-24] MEDS: Hydrochlorothiazide 25 MG TAB PO SCH (08:53)
[2019-11-24] MEDS: Valsartan 80 MG TAB PO SCH (08:54)
[2019-11-24] MEDS: Isosorbide Mononitrate (ER) 30 MG TAB PO SCH (08:54)
[2019-11-24] MEDS: Potassium Chloride 20 MEQ TAB PO SCH (08:55)
[2019-11-24] MEDS: Alogliptin 6.25 MG TAB PO SCH (08:56)
[2019-11-24] MEDS: metFORMIN 500 MG TAB PO SCH (08:56)
[2019-11-24] MEDS: Aspirin 81 mg Enteric Coated Tablet PO SCH (08:56)
[2019-11-24] MEDS: Enoxaparin Sodium 40 MG/0.4 ML SYRINGE SC SCH (08:57)
[2019-11-24] MEDS: predniSONE 20 MG TAB PO SCH (08:59)
[2019-11-24 12:57] VITALS: BP 113/70; TEMP 98.4
[2019-11-24] MEDS ORDERED: Vancomycin HCl 1 GM in Premix Bag 1 BAG IVPB SCH (18:00)
[2019-11-24] MEDS ORDERED: Cefdinir 300 MG CAP PO SCH (21:00)
[2019-11-25] MEDS ORDERED: predniSONE 20 MG TAB PO SCH (08:00)
--- NOTE | 2019-11-26 23:48 | PQF ---
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 Clinical indicators are provided on the bottom of this form for your review Can you please further clarify the diagnosis of the patient? Please check appropriate box(es): [ x ] Sepsis [ ] No Sepsis, only acute viral syndrome [ ] Localized infection without sepsis [ x ] Other diagnosis please specify _bacteremia noted with positive blood culture suspected contaminant___sepsis attributed to viral etiology [ ] Unable to determine In addition, please specify: Present on Admission (POA): [ x ] Yes [ ] No [ ] Unable to determine For continuity of documentation, please document condition throughout progress notes and discharge summary. Thank You. CLINICAL INDICATORS - SIGNS / SYMPTOMS / LABS [facility] PN p2 11/24 Dr. Holt Corynebacterium bacteremia elevated wbc, febrile, + Bcx., LA 3.3 [facility] H&P p5 11/20 Dr. Penny Viral Syndrome, Acute Patient met SIRS criteria while in ED [facility] H&P p7 11/20 Dr. Penny Sepsis 11/12 suspected viral syndrome [facility] H&P p8 11/20 Dr. Penny SIRS no source found Laboratory Results Hematology WBC 17.1 (11/20), 17.0 (11/21), 15.7 (11/22), 11.1 (11/23) Laboratory Results Chemistry Lactic Acid 3.3 (11/20), 3.4 (11/20) 1.2 (11/21) Laboratory Results Chemistry Glucose 170 (11/20), 200 (11/21), 275 (11/21), 147 (), 142 (11/23) Laboratory Results Chemistry Procalcitonin 6.55 (11/21), 4.45 (11/22), 2.71 () Family Practice H&P p3 11/20 Dr. Penny Vital Signs BP 111/69; HR 78; RR 21; Temp 100.7 Consult p3 11/23 Dr. Rivas The Corynebacterium bacteremia is more likely to represent contamination of the sample and she does not have any foreign body. Family Medicine PN p3 11/23 Dr. Holt positive Blood cult 11/12 corynebacterium further analysis underway with no obvious source yet but clinical course of excellent response to IV antibiotic [employer]ISK [employer] Family Medicine PN p2 11/24 Viral Syndrome [facility] PN p2 11/24 Sarcoidosis Consult p1 11/23- on chronic prednisone H and P pg.1- 69 years old H and P pg.1- HTN H and P pg.1- CHF TREATMENTS: ID consult - Consult 11/23 Dr. Rivas IV Vancomycin DEC 10 IV Cefepime DEC 10 IV fluids DEC 10 (This form is maintained as a part of the permanent medical record) 2014 [employer]. All Rights Reserved [email or web address]
== END 2019-11-24 13:24 | disposition home or self-care (01) | DRG 872 ==
LOC: ERS 13:24 → T4-A 21:58 → OBSVTOIN 11-22 11:04
PROVIDERS: ADMIT Family Medicine; ATTEND Family Medicine
DX: A41.89 Other specified sepsis (principal); B34.9 Viral infection, unspecified; D86.9 Sarcoidosis, unspecified; E87.6 Hypokalemia; E11.9 Type 2 diabetes mellitus without complications; I11.0 Hypertensive heart disease with heart failure; I50.9 Heart failure, unspecified; I25.708 Atherosclerosis of coronary artery bypass graft(s), unspecified, with other forms of angina pectoris; Z88.1 Allergy status to other antibiotic agents; Z91.040 Latex allergy status; Z79.52 Long term (current) use of systemic steroids; Z79.82 Long term (current) use of aspirin; Z79.84 Long term (current) use of oral hypoglycemic drugs; Z79.899 Other long term (current) drug therapy
CPT/HCPCS: 36415; 36416; 71045; 71250; 74177; 76705; 80048; 80053; 80202; 81003; 83605; 83690; 84145; 84484; 85025; 87040; 87086; 87449; 87497; 87633; 87804; 87899; 93005; 93306; 96361; 96365; 96366; 96367; J0692; J0696; J1650; J3370; J3490; J7050; J7512; Q9967

== ENCOUNTER 2020-09-20 10:34 | Emergency (ER) | payer MEDICARE ==
--- NOTE | 2020-09-20 11:55 | RAD ---
CHEST 1 VIEW: Date: 09/20/2020 HISTORY: Chest pain since last night. COMPARISON: 11/23/2019. FINDINGS: Postop midline sternotomy. Atherosclerotic ectatic changes of the aorta. Minimal increased linear and interstitial markings bilaterally without confluent pneumonia, overt edema, or significant pleural e ffusion. IMPRESSION: Evidence for minimal bilateral stable chronic changes. Atherosclerosis of aorta with ectasia. No sign ificant new process. POS: RRE
[2020-09-20 12:18] LABS: #Eosinphils 0.3 thou/uL (0.0-0.7); #Lymphocytes 1.2 thou/uL (1.20-3.40); #Monocytes 0.3 thou/uL (0.11-0.59); #Neutrophils 1.3 thou/uL (1.40-6.50); %Basophils 1.2 % (0.0-1.0); %Eosinophils 9.2 % (0.0-10.0); %Lymphocytes 37.9 % (21.0-51.0); %Monocytes 9.5 % (0.0-10.0); %Neutrophils 42.1 % (42.0-75.0); Mean Corpuscular HGB CONC 32.8 g/dL (32.0-36.0); Mean Corpuscular Hemoglobin 31.9 pg (27.0-31.0); Mean Corpuscular Volume 97.3 fL (78.0-98.0); Mean Platelet Volume 7.2 fL (7.4-10.4); Platelet Count 220 thou/uL (130-400); RBC Distribution Width 11.7 % (11.5-14.5); Red Blood Cell (RBC) Count 4.09 mill/uL (4.20-5.40); White Blood Cell (WBC) Count 3.1 thou/uL (4.8-10.8)
[2020-09-20 12:30] LABS: ALT (SGPT) 10 U/L (8-55); AST (SGOT) 14 U/L (5-34); Albumin 3.8 g/dL (3.4-4.8); Alkaline Phosphatase 81 U/L (40-110); Anion Gap 12 mmol/L (10-20); BUN (Urea Nitrogen) 14 mg/dL (9.8-20.1); Bilirubin, Total 0.9 mg/dL (0.2-1.2); CK (CPK) 86 U/L (29-168); Calc. Creatinine Clearance 0 mL/min (70-130); Calcium 9.3 mg/dL (7.8-10.44); Carbon Dioxide 27 mmol/L (23-31); Chloride 102 mmol/L (98-107); Globulin 2.7 g/dL (2.4-3.5); Glucose 122 mg/dL (83-110); Potassium 3.9 mmol/L (3.5-5.1); Protein, Total 6.5 g/dL (6.0-8.3); Sodium 137 mmol/L (136-145)
== END 2020-09-20 14:28 | disposition home or self-care (01) ==
LOC: ERS 10:34
DX: R07.89 Other chest pain (principal); E11.9 Type 2 diabetes mellitus without complications; I11.0 Hypertensive heart disease with heart failure; I50.9 Heart failure, unspecified; I25.10 Atherosclerotic heart disease of native coronary artery without angina pectoris; E78.5 Hyperlipidemia, unspecified; J45.909 Unspecified asthma, uncomplicated; Z79.84 Long term (current) use of oral hypoglycemic drugs; Z79.82 Long term (current) use of aspirin; Z79.899 Other long term (current) drug therapy
CPT/HCPCS: 36415; 71045; 80053; 82550; 83880; 84484; 85025; 93005

== ENCOUNTER 2021-03-25 08:30 | Emergency (ER) | payer MEDICARE ==
[2021-03-25 10:03] LABS: #Eosinphils 0.3 thou/uL (0.0-0.7); #Lymphocytes 1.2 thou/uL (1.20-3.40); #Monocytes 0.3 thou/uL (0.11-0.59); #Neutrophils 1.6 thou/uL (1.40-6.50); %Basophils 1.2 % (0.0-1.0); %Eosinophils 8.2 % (0.0-10.0); %Lymphocytes 34.7 % (21.0-51.0); %Neutrophils 47.9 % (42.0-75.0); Hemoglobin 13.3 g/dL (12.0-16.0); Mean Corpuscular Hemoglobin 33.2 pg (27.0-31.0); Mean Corpuscular Volume 97.5 fL (78.0-98.0); Mean Platelet Volume 6.9 fL (7.4-10.4); Platelet Count 217 thou/uL (130-400); RBC Distribution Width 12.9 % (11.5-14.5); Red Blood Cell (RBC) Count 4.02 mill/uL (4.20-5.40); White Blood Cell (WBC) Count 3.3 thou/uL (4.8-10.8)
[2021-03-25 10:26] LABS: ALT (SGPT) 16 U/L (8-55); AST (SGOT) 17 U/L (5-34); Albumin 3.7 g/dL (3.4-4.8); Alkaline Phosphatase 72 U/L (40-110); Anion Gap 13 mmol/L (10-20); BUN (Urea Nitrogen) 15 mg/dL (9.8-20.1); Bilirubin, Total 0.6 mg/dL (0.2-1.2); CK (CPK) 113 U/L (29-168); Calc. Creatinine Clearance 0 mL/min (70-130); Calcium 9.5 mg/dL (7.8-10.44); Carbon Dioxide 26 mmol/L (23-31); Chloride 105 mmol/L (98-107); Globulin 2.6 g/dL (2.4-3.5); Glucose 131 mg/dL (83-110); Protein, Total 6.3 g/dL (5.8-8.1); Sodium 140 mmol/L (136-145)
[2021-03-25] MEDS ORDERED: Ketorolac Tromethamine 30 MG/ML VIAL ONE (11:04)
[2021-03-25 12:33] LABS: Troponin I Less than 0.010 ng/mL (< 0.028)
== END 2021-03-25 13:19 | disposition home or self-care (01) ==
LOC: ERS 08:30
DX: M25.511 Pain in right shoulder (principal); R07.89 Other chest pain; I11.0 Hypertensive heart disease with heart failure; I50.9 Heart failure, unspecified; E11.9 Type 2 diabetes mellitus without complications; E78.5 Hyperlipidemia, unspecified; Z79.84 Long term (current) use of oral hypoglycemic drugs; Z79.82 Long term (current) use of aspirin; Z79.899 Other long term (current) drug therapy
CPT/HCPCS: 36415; 71045; 80053; 82550; 83880; 84484; 85025; 93005; 96372; J1885

== ENCOUNTER 2021-06-17 13:59 | Outpatient (CLI) | payer MEDICARE | END 2021-06-17 14:00 | disposition home or self-care (01) | LOC: BICULT 13:59 | PROVIDERS: ATTEND Nurse Practitioner Family | DX: M79.89 Other specified soft tissue disorders (principal) | CPT/HCPCS: 36415; 85379 ==

== ENCOUNTER 2021-08-31 08:48 | Observation (INO) | payer MEDICARE ==
[2021-08-31 09:22] LABS: #Eosinphils 0.2 thou/uL (0.0-0.7); #Lymphocytes 1.3 thou/uL (1.20-3.40); #Monocytes 0.4 thou/uL (0.11-0.59); #Neutrophils 2.1 thou/uL (1.40-6.50); %Basophils 0.7 % (0.0-1.0); %Eosinophils 5.7 % (0.0-10.0); %Lymphocytes 32.7 % (21.0-51.0); %Monocytes 8.9 % (0.0-10.0); %Neutrophils 52.1 % (42.0-75.0); Hemoglobin 13.3 g/dL (12.0-16.0); Mean Corpuscular HGB CONC 34.8 g/dL (32.0-36.0); Mean Corpuscular Hemoglobin 33.6 pg (27.0-31.0); Mean Corpuscular Volume 96.7 fL (78.0-98.0); Mean Platelet Volume 6.9 fL (7.4-10.4); Platelet Count 198 thou/uL (130-400); RBC Distribution Width 11.8 % (11.5-14.5); Red Blood Cell (RBC) Count 3.95 mill/uL (4.20-5.40); White Blood Cell (WBC) Count 4.1 thou/uL (4.8-10.8)
[2021-08-31 09:33] LABS: ALT (SGPT) 13 U/L (8-55); AST (SGOT) 18 U/L (5-34); Albumin 3.8 g/dL (3.4-4.8); Alkaline Phosphatase 82 U/L (40-110); Anion Gap 14 mmol/L (10-20); BUN (Urea Nitrogen) 14 mg/dL (9.8-20.1); Bilirubin, Total 1.2 mg/dL (0.2-1.2); Calc. Creatinine Clearance 0 mL/min (70-130); Calcium 9.7 mg/dL (7.8-10.44); Carbon Dioxide 25 mmol/L (23-31); Chloride 105 mmol/L (98-107); Globulin 2.9 g/dL (2.4-3.5); Glucose 113 mg/dL (83-110); Potassium 3.9 mmol/L (3.5-5.1); Protein, Total 6.7 g/dL (5.8-8.1); Sodium 140 mmol/L (136-145)
[2021-08-31 09:56] LABS: CKMB 1.8 ng/mL (0-6.6)
[2021-08-31] MEDS ORDERED: Aspirin 325 MG TAB ONE (10:04)
[2021-08-31] MEDS ORDERED: Aspirin Chewable 81 MG TAB ONE (10:05)
[2021-08-31 13:23] VITALS: BMI 27.9
[2021-08-31 13:44] LABS: SARS-CoV-2 NAA Rapid Test Not Detected (NotDetected)
[2021-08-31] MEDS ORDERED: HumaLOG 300 UNITS/3 ML VIAL SC PRN ×2 (13:53)
[2021-08-31] MEDS ORDERED: Acetaminophen 325 MG TAB PO PRN (13:53)
[2021-08-31] MEDS ORDERED: Dextrose 5% in Water 1,000 ML IV PRN (13:53)
[2021-08-31] MEDS ORDERED: Ondansetron ODT 4 MG TAB PO PRN (13:53)
[2021-08-31] MEDS ORDERED: Dextrose 50% Abboject 50 ML SYRINGE SLOW IVP PRN (13:53)
[2021-08-31 13:55] LABS: Troponin I 0.057 ng/mL (< 0.028)
[2021-08-31] MEDS ORDERED: Lidocaine 2% Viscous Solution 10 ML, Aluminum & Magnesium Hydroxide 30 ML SSW SCH (14:15)
[2021-08-31 16:10] LABS: Hemoglobin A1c 6.4 % (4.0-6.0)
[2021-08-31 16:22] LABS: Troponin I 0.052 ng/mL (< 0.028)
[2021-08-31] MEDS ORDERED: Nitroglycerin 0.4 MG TAB (25 Tab Bottle) SL PRN (16:28)
[2021-08-31] MEDS ORDERED: Aspirin 81 mg Enteric Coated Tablet PO SCH (21:00)
[2021-08-31] MEDS ORDERED: predniSONE 5 MG TAB PO SCH (21:00)
[2021-08-31] MEDS ORDERED: metFORMIN 500 MG TAB PO SCH (21:00)
[2021-08-31] MEDS ORDERED: Simvastatin 10 MG TAB PO SCH (21:00)
[2021-08-31] MEDS ORDERED: Ezetimibe 10 MG TAB PO SCH (21:00)
[2021-08-31] MEDS ORDERED: Alogliptin 6.25 MG TAB PO SCH (21:00)
[2021-09-01 05:46] LABS: Cardiac Risk 2.8 (Less than 4.5)
[2021-09-01] MEDS ORDERED: Enoxaparin Sodium 30 MG/0.3 ML SYRINGE SC SCH (09:00)
[2021-09-01] MEDS ORDERED: Regadenoson 0.4 MG/5 ML SYRINGE ONE (09:12)
[2021-09-01 12:09] VITALS: BP 132/70; TEMP 98
== END 2021-09-01 13:22 | disposition home or self-care (01) ==
LOC: ERS 08:48 → 2SW 10:21
PROVIDERS: ADMIT Emergency Medicine; ATTEND Emergency Medicine
DX: R07.89 Other chest pain (principal); R00.1 Bradycardia, unspecified; I08.1 Rheumatic disorders of both mitral and tricuspid valves; E05.80 Other thyrotoxicosis without thyrotoxic crisis or storm; E11.9 Type 2 diabetes mellitus without complications; I11.0 Hypertensive heart disease with heart failure; I50.32 Chronic diastolic (congestive) heart failure; I48.91 Unspecified atrial fibrillation; E78.5 Hyperlipidemia, unspecified; D86.9 Sarcoidosis, unspecified; J45.909 Unspecified asthma, uncomplicated; I25.10 Atherosclerotic heart disease of native coronary artery without angina pectoris; Z20.822 Contact with and (suspected) exposure to COVID-19; Z95.1 Presence of aortocoronary bypass graft; Z88.1 Allergy status to other antibiotic agents; Z91.040 Latex allergy status; Z79.82 Long term (current) use of aspirin; Z79.84 Long term (current) use of oral hypoglycemic drugs; Z79.52 Long term (current) use of systemic steroids; Z79.899 Other long term (current) drug therapy; Z90.710 Acquired absence of both cervix and uterus; Z98.890 Other specified postprocedural states
CPT/HCPCS: 71045; 78452; 80061; 82553; 82962 ×2; 83036; 83880; 84439; 84484 ×2; 93005; 93017; 93306; 94760 ×2; A9500; U0002; 36415; 36416; 80053; 84443; 85025; 96372; G0378; J1650; J2785; J7512

== ENCOUNTER 2022-06-07 17:49 | Observation (INO) | payer MEDICARE ==
[2022-06-07 18:31] LABS: #Basophils 0.1 thou/uL (0.0-0.2); #Eosinphils 0.2 thou/uL (0.0-0.7); #Lymphocytes 1.9 thou/uL (1.20-3.40); #Monocytes 0.4 thou/uL (0.11-0.59); #Neutrophils 2.5 thou/uL (1.40-6.50); %Basophils 1.1 % (0.0-1.0); %Eosinophils 3.8 % (0.0-10.0); %Lymphocytes 37.5 % (21.0-51.0); %Monocytes 7.7 % (0.0-10.0); %Neutrophils 49.9 % (42.0-75.0); Hemoglobin 14.2 g/dL (12.0-16.0); Mean Corpuscular HGB CONC 36.3 g/dL (32.0-36.0); Mean Corpuscular Hemoglobin 35.8 pg (27.0-31.0); Mean Corpuscular Volume 98.9 fL (78.0-98.0); Mean Platelet Volume 7.2 fL (7.4-10.4); Platelet Count 210 thou/uL (130-400); RBC Distribution Width 11.9 % (11.5-14.5); Red Blood Cell (RBC) Count 3.95 mill/uL (4.20-5.40); White Blood Cell (WBC) Count 5.1 thou/uL (4.8-10.8)
[2022-06-07 18:51] LABS: ALT (SGPT) 11 U/L (8-55); AST (SGOT) 15 U/L (5-34); Albumin 4.3 g/dL (3.4-4.8); Alkaline Phosphatase 85 U/L (40-110); Anion Gap 16 mmol/L (10-20); BUN (Urea Nitrogen) 16 mg/dL (9.8-20.1); Bilirubin, Total 0.9 mg/dL (0.2-1.2); Calc. Creatinine Clearance 0 mL/min (70-130); Calcium 9.8 mg/dL (7.8-10.44); Carbon Dioxide 25 mmol/L (23-31); Chloride 101 mmol/L (98-107); Estimated GFR 60; Glucose 134 mg/dL (83-110); Lipase 82 U/L (8-78); Magnesium 1.7 mg/dL (1.6-2.6); Potassium 3.8 mmol/L (3.5-5.1); Protein, Total 7.3 g/dL (5.8-8.1); Sodium 138 mmol/L (136-145)
[2022-06-07] MEDS ORDERED: Aspirin 325 MG TAB ONE (19:09)
[2022-06-07] MEDS ORDERED: Piperacillin/Tazobactam 3.375 GM VIAL ONE (20:05)
[2022-06-07 20:17] LABS: Bilirubin Negative (Negative); Blood, Urine Negative (Negative); Clarity Clear (Clear); Glucose, Urine (Dipstick) Normal (Negative); Ketone, Urine Negative (Negative); Leukocyte Negative Leu/uL (Negative); Nitrite Negative (Negative); Protein, Urine (Dipstick) Negative (Neg-Trace); Specific Gravity, Urine 1.009 (1.002-1.036); Urobilinogen Normal mg/dL (Less than 2)
[2022-06-07] MEDS ORDERED: Ondansetron PF 4 MG/2 ML Vial IVP PRN (21:50)
[2022-06-07] MEDS ORDERED: Ondansetron ODT 4 MG TAB PO PRN (21:50)
[2022-06-07] MEDS ORDERED: Dextrose 50% Abboject 50 ML SYRINGE SLOW IVP PRN (22:28)
[2022-06-07] MEDS ORDERED: Dextrose 5% in Water 1,000 ML IV PRN (22:28)
[2022-06-07] MEDS ORDERED: HumaLOG 300 UNITS/3 ML VIAL SC PRN ×2 (22:28)
[2022-06-07] MEDS ORDERED: Lactated Ringer's 1,000 ML IV SCH (22:30)
[2022-06-07 22:34] LABS: Troponin I Less than 0.010 ng/mL (< 0.028)
[2022-06-07 22:45] VITALS: BMI 27.2
[2022-06-07 23:25] LABS: Hemoglobin A1c 6.6 % (4.0-6.0)
[2022-06-07 23:27] LABS: Cardiac Risk 2.7 (Less than 4.5)
[2022-06-07 23:33] LABS: Magnesium 1.7 mg/dL (1.6-2.6); Phosphorus 3.2 mg/dL (2.3-4.7)
[2022-06-07] MEDS ORDERED: Piperacillin/Tazobactam 3.375 GM in Sodium Chloride 0.9% 100 ML IVPB SCH (23:59)
[2022-06-08] MEDS ORDERED: Magnesium 2 GM/50 ML(in water) 2 GM in Premix Bag 1 BAG IVPB SCH (00:15)
[2022-06-08] MEDS: Piperacillin/Tazobactam 3.375 GM in Sodium Chloride 0.9% 100 ML IVPB SCH ×2 (01:37→09:22)
[2022-06-08 01:40] LABS: Troponin I Less than 0.010 ng/mL (< 0.028)
[2022-06-08 01:50] LABS: SARS-CoV-2 NAA Rapid Test Not Detected (NotDetected)
[2022-06-08 06:37] LABS: #Eosinphils 0.2 thou/uL (0.0-0.7); #Lymphocytes 1.5 thou/uL (1.20-3.40); #Monocytes 0.4 thou/uL (0.11-0.59); #Neutrophils 1.9 thou/uL (1.40-6.50); %Basophils 0.6 % (0.0-1.0); %Eosinophils 5.5 % (0.0-10.0); %Lymphocytes 36.3 % (21.0-51.0); %Monocytes 9.2 % (0.0-10.0); %Neutrophils 48.3 % (42.0-75.0); Hemoglobin 12.3 g/dL (12.0-16.0); Mean Corpuscular HGB CONC 34.4 g/dL (32.0-36.0); Mean Corpuscular Volume 98.8 fL (78.0-98.0); Mean Platelet Volume 7.2 fL (7.4-10.4); Platelet Count 198 thou/uL (130-400); RBC Distribution Width 11.8 % (11.5-14.5); Red Blood Cell (RBC) Count 3.62 mill/uL (4.20-5.40)
[2022-06-08 06:57] LABS: ALT (SGPT) 9 U/L (8-55); AST (SGOT) 13 U/L (5-34); Albumin 3.5 g/dL (3.4-4.8); Alkaline Phosphatase 73 U/L (40-110); Anion Gap 15 mmol/L (10-20); BUN (Urea Nitrogen) 14 mg/dL (9.8-20.1); Bilirubin, Total 1.3 mg/dL (0.2-1.2); Calc. Creatinine Clearance 65 mL/min (70-130); Carbon Dioxide 23 mmol/L (23-31); Chloride 105 mmol/L (98-107); Estimated GFR 80; Globulin 2.7 g/dL (2.4-3.5); Glucose 100 mg/dL (83-110); Potassium 3.5 mmol/L (3.5-5.1); Protein, Total 6.2 g/dL (5.8-8.1); Sodium 139 mmol/L (136-145)
[2022-06-08] MEDS ORDERED: metFORMIN 500 MG TAB PO SCH (08:00)
[2022-06-08] MEDS ORDERED: Ezetimibe 10 MG TAB PO SCH (09:00)
[2022-06-08] MEDS ORDERED: predniSONE 5 MG TAB PO SCH (09:00)
[2022-06-08] MEDS ORDERED: fentaNYL Citrate/PF 100 MCG/2 ML SYRINGE ONE (09:37)
[2022-06-08] MEDS ORDERED: Midazolam HCl 2 mg/2 ml Vial ONE (09:37)
[2022-06-08] MEDS ORDERED: Iopamidol 30 ML ONE (09:54)
[2022-06-08] MEDS ORDERED: Bupivacaine PF 0.5% 30 ML VIAL ONE (09:54)
[2022-06-08] MEDS ORDERED: EPINEPHrine 1 MG/ML AMP ONE (09:54)
[2022-06-08] MEDS ORDERED: Ondansetron PF 4 MG/2 ML Vial ONE (11:00)
[2022-06-08] MEDS ORDERED: Lidocaine 1% MPF 2 ML VIAL ONE (11:00)
[2022-06-08] MEDS ORDERED: Dexamethasone 20 MG/5 ML VIAL ONE (11:00)
[2022-06-08] MEDS ORDERED: Rocuronium Bromide 10 MG/ML (10ML VIAL) ONE (11:00)
[2022-06-08] MEDS ORDERED: PROPOFOL 200 MG/20 ML VIAL ONE (11:00)
[2022-06-08] MEDS ORDERED: SUGAMMADEX SODIUM 200 MG/2 ML VIAL ONE (11:44)
[2022-06-08] MEDS ORDERED: Ibuprofen 600 MG TAB PO PRN (12:12)
[2022-06-08] MEDS ORDERED: Acetaminophen 500 MG TAB PO PRN (12:12)
[2022-06-08] MEDS ORDERED: traMADol HCl 50 MG TAB PO PRN (12:12)
[2022-06-08] MEDS ORDERED: Acetaminophen 500 MG TAB PO SCH (12:15)
[2022-06-08 17:23] VITALS: BP 133/0; TEMP 97.5
[2022-06-08] MEDS ORDERED: Aspirin 81 mg Enteric Coated Tablet PO SCH (21:00)
[2022-06-08] MEDS ORDERED: Atorvastatin Calcium 40 MG TAB PO SCH (21:00)
== END 2022-06-08 16:50 | disposition home or self-care (01) ==
LOC: ERS 17:49 → SURG B 20:50
PROVIDERS: ADMIT Student in an Organized Health Care Education/Training Program; ATTEND Student in an Organized Health Care Education/Training Program
PROC: 0FT44ZZ Resection of Gallbladder, Percutaneous Endoscopic Approach (ICD-10-PCS; principal; 2022-06-08)
PROC: BF101ZZ Fluoroscopy of Bile Ducts using Low Osmolar Contrast (ICD-10-PCS; 2022-06-08)
DX: K80.13 Calculus of gallbladder with acute and chronic cholecystitis with obstruction (principal); I11.0 Hypertensive heart disease with heart failure; I50.9 Heart failure, unspecified; E11.9 Type 2 diabetes mellitus without complications; D86.9 Sarcoidosis, unspecified; I25.10 Atherosclerotic heart disease of native coronary artery without angina pectoris; E78.00 Pure hypercholesterolemia, unspecified; J45.909 Unspecified asthma, uncomplicated; I48.91 Unspecified atrial fibrillation; Z79.82 Long term (current) use of aspirin; Z79.84 Long term (current) use of oral hypoglycemic drugs; Z79.52 Long term (current) use of systemic steroids; Z79.899 Other long term (current) drug therapy; Z88.1 Allergy status to other antibiotic agents; Z91.040 Latex allergy status; Z95.1 Presence of aortocoronary bypass graft; Z20.822 Contact with and (suspected) exposure to COVID-19
CPT/HCPCS: 47532; 47563; 71045; 76705; 80053; 80061; 81003; 82962 ×2; 83036; 83690; 83735; 83880; 84100; 84484 ×3; 85025; 93005; 96361; 96365; 96366 ×2; 96367; 96376; 99285; C1713; G0378 ×3; J1610; U0002; 36415; 36416; 84443; 88304; J0171; J1100; J2250; J2405; J2543; J2704; J3475; J3490; J7120; Q9967; S0020

== ENCOUNTER 2022-06-20 15:06 | Inpatient (IN) | payer MEDICARE ==
[2022-06-20 16:06] LABS: #Eosinphils 0.3 thou/uL (0.0-0.7); #Lymphocytes 1.7 thou/uL (1.20-3.40); #Monocytes 0.4 thou/uL (0.11-0.59); %Basophils 0.1 % (0.0-1.0); %Eosinophils 5.1 % (0.0-10.0); %Lymphocytes 31.7 % (21.0-51.0); %Monocytes 7.9 % (0.0-10.0); %Neutrophils 55.2 % (42.0-75.0); Hemoglobin 13.3 g/dL (12.0-16.0); Mean Corpuscular HGB CONC 34.2 g/dL (32.0-36.0); Mean Corpuscular Hemoglobin 33.9 pg (27.0-31.0); Mean Corpuscular Volume 99.1 fL (78.0-98.0); Mean Platelet Volume 6.9 fL (7.4-10.4); Platelet Count 223 thou/uL (130-400); RBC Distribution Width 11.8 % (11.5-14.5); Red Blood Cell (RBC) Count 3.93 mill/uL (4.20-5.40); White Blood Cell (WBC) Count 5.5 thou/uL (4.8-10.8)
[2022-06-20 16:17] LABS: INR-International Normal Ratio 1.1; PTT 34.3 sec (22.9-36.1)
[2022-06-20 16:25] LABS: ALT (SGPT) 11 U/L (8-55); AST (SGOT) 12 U/L (5-34); Albumin 3.9 g/dL (3.4-4.8); Alkaline Phosphatase 80 U/L (40-110); Anion Gap 12 mmol/L (10-20); BUN (Urea Nitrogen) 10 mg/dL (9.8-20.1); Bilirubin, Total 1.2 mg/dL (0.2-1.2); Calc. Creatinine Clearance 0 mL/min (70-130); Calcium 9.2 mg/dL (7.8-10.44); Carbon Dioxide 26 mmol/L (23-31); Chloride 105 mmol/L (98-107); Estimated GFR 72; Globulin 2.7 g/dL (2.4-3.5); Glucose 115 mg/dL (83-110); Potassium 3.7 mmol/L (3.5-5.1); Protein, Total 6.6 g/dL (5.8-8.1); Sodium 139 mmol/L (136-145)
[2022-06-20] MEDS ORDERED: Aspirin 325 MG TAB ONE (18:36)
[2022-06-20] MEDS ORDERED: hydrALAZINE 20 MG/ML VIAL ONE (18:37)
[2022-06-20] MEDS ORDERED: Acetaminophen 325 MG TAB PO PRN (18:58)
[2022-06-20] MEDS: Atorvastatin Calcium 40 MG TAB PO SCH (21:42)
[2022-06-21 00:43] VITALS: BMI 26.9
[2022-06-21] MEDS ORDERED: diphenhydrAMINE 25 MG CAP PO SCH ×2 (04:15→21:45)
[2022-06-21] MEDS ORDERED: metFORMIN 500 MG TAB PO SCH (08:00)
[2022-06-21] MEDS ORDERED: predniSONE 5 MG TAB PO SCH (08:00)
[2022-06-21 08:57] LABS: #Eosinphils 0.3 thou/uL (0.0-0.7); #Lymphocytes 1.3 thou/uL (1.20-3.40); #Monocytes 0.3 thou/uL (0.11-0.59); #Neutrophils 2.2 thou/uL (1.40-6.50); %Basophils 0.3 % (0.0-1.0); %Eosinophils 6.7 % (0.0-10.0); %Lymphocytes 31.6 % (21.0-51.0); %Neutrophils 53.4 % (42.0-75.0); Hemoglobin 13.4 g/dL (12.0-16.0); Mean Corpuscular HGB CONC 33.3 g/dL (32.0-36.0); Mean Corpuscular Volume 99.1 fL (78.0-98.0); Mean Platelet Volume 7.2 fL (7.4-10.4); Platelet Count 227 thou/uL (130-400); RBC Distribution Width 11.7 % (11.5-14.5); Red Blood Cell (RBC) Count 4.06 mill/uL (4.20-5.40); White Blood Cell (WBC) Count 4.2 thou/uL (4.8-10.8)
[2022-06-21 09:29] LABS: Hemoglobin A1c 6.9 % (4.0-6.0)
[2022-06-21 09:34] LABS: ALT (SGPT) 9 U/L (8-55); AST (SGOT) 11 U/L (5-34); Albumin 3.6 g/dL (3.4-4.8); Alkaline Phosphatase 78 U/L (40-110); Anion Gap 10 mmol/L (10-20); BUN (Urea Nitrogen) 12 mg/dL (9.8-20.1); Bilirubin, Total 1.8 mg/dL (0.2-1.2); Calc. Creatinine Clearance 63 mL/min (70-130); Calcium 9.2 mg/dL (7.8-10.44); Carbon Dioxide 25 mmol/L (23-31); Chloride 107 mmol/L (98-107); Estimated GFR 77; Globulin 2.8 g/dL (2.4-3.5); Glucose 135 mg/dL (83-110); Protein, Total 6.4 g/dL (5.8-8.1); Sodium 138 mmol/L (136-145)
[2022-06-21] MEDS: Enoxaparin Sodium 40 MG/0.4 ML SYRINGE SC SCH (11:06)
[2022-06-21] MEDS: Ezetimibe 10 MG TAB PO SCH (11:06)
[2022-06-21] MEDS: metFORMIN 500 MG TAB PO SCH ×2 (11:12→17:41)
[2022-06-21] MEDS: Atorvastatin Calcium 40 MG TAB PO SCH (20:59)
[2022-06-22 05:16] LABS: #Eosinphils 0.4 thou/uL (0.0-0.7); #Lymphocytes 1.5 thou/uL (1.20-3.40); #Monocytes 0.4 thou/uL (0.11-0.59); #Neutrophils 2.4 thou/uL (1.40-6.50); %Basophils 0.5 % (0.0-1.0); %Eosinophils 7.6 % (0.0-10.0); %Monocytes 8.3 % (0.0-10.0); %Neutrophils 51.7 % (42.0-75.0); Hemoglobin 12.3 g/dL (12.0-16.0); Mean Corpuscular HGB CONC 33.5 g/dL (32.0-36.0); Mean Corpuscular Hemoglobin 33.5 pg (27.0-31.0); Mean Platelet Volume 6.8 fL (7.4-10.4); Platelet Count 214 thou/uL (130-400); Red Blood Cell (RBC) Count 3.66 mill/uL (4.20-5.40); White Blood Cell (WBC) Count 4.7 thou/uL (4.8-10.8)
[2022-06-22 05:42] LABS: ALT (SGPT) 8 U/L (8-55); AST (SGOT) 10 U/L (5-34); Albumin 3.2 g/dL (3.4-4.8); Alkaline Phosphatase 67 U/L (40-110); Anion Gap 13 mmol/L (10-20); BUN (Urea Nitrogen) 18 mg/dL (9.8-20.1); Bilirubin, Total 1.3 mg/dL (0.2-1.2); Calc. Creatinine Clearance 62 mL/min (70-130); Calcium 9.1 mg/dL (7.8-10.44); Carbon Dioxide 20 mmol/L (23-31); Chloride 109 mmol/L (98-107); Estimated GFR 76; Globulin 2.5 g/dL (2.4-3.5); Glucose 130 mg/dL (83-110); Potassium 3.9 mmol/L (3.5-5.1); Protein, Total 5.7 g/dL (5.8-8.1); Sodium 138 mmol/L (136-145)
[2022-06-22] MEDS: Enoxaparin Sodium 40 MG/0.4 ML SYRINGE SC SCH (09:50)
[2022-06-22] MEDS: metFORMIN 500 MG TAB PO SCH (09:50)
[2022-06-22] MEDS: Ezetimibe 10 MG TAB PO SCH (09:50)
[2022-06-22 15:48] VITALS: BP 132/64; TEMP 98
== END 2022-06-22 17:55 | disposition home or self-care (01) | DRG 69 ==
LOC: ERS 15:06 → NEURO 18:23 → OBSVTOIN 06-21 18:10
PROVIDERS: ADMIT Student in an Organized Health Care Education/Training Program; ATTEND Student in an Organized Health Care Education/Training Program
DX: G45.9 Transient cerebral ischemic attack, unspecified (principal); Z20.822 Contact with and (suspected) exposure to COVID-19; I10 Essential (primary) hypertension; I25.10 Atherosclerotic heart disease of native coronary artery without angina pectoris; E11.9 Type 2 diabetes mellitus without complications; E78.5 Hyperlipidemia, unspecified; D86.9 Sarcoidosis, unspecified; I48.0 Paroxysmal atrial fibrillation; Z88.1 Allergy status to other antibiotic agents; Z88.8 Allergy status to other drugs, medicaments and biological substances; Z91.040 Latex allergy status; Z95.1 Presence of aortocoronary bypass graft; Z79.82 Long term (current) use of aspirin; Z79.52 Long term (current) use of systemic steroids; Z79.84 Long term (current) use of oral hypoglycemic drugs; Z79.899 Other long term (current) drug therapy; Z90.710 Acquired absence of both cervix and uterus; Z90.49 Acquired absence of other specified parts of digestive tract; Z98.890 Other specified postprocedural states
CPT/HCPCS: 36415; 70450; 80053; 80061; 83036; 84443; 84484; 85025; 85610; 85730; 93005; 93880; 96372; 96374; G0378; J0360; J1650; J7512; U0003; U0005

== ENCOUNTER 2022-10-05 12:18 | Emergency (ER) | payer MEDICARE ==
[2022-10-05 13:13] LABS: #Eosinphils 0.3 thou/uL (0.0-0.7); #Lymphocytes 1.3 thou/uL (1.20-3.40); #Monocytes 0.4 thou/uL (0.11-0.59); #Neutrophils 1.8 thou/uL (1.40-6.50); %Eosinophils 6.9 % (0.0-10.0); %Monocytes 9.3 % (0.0-10.0); %Neutrophils 48.7 % (42.0-75.0); Hemoglobin 13.2 g/dL (12.0-16.0); Mean Corpuscular HGB CONC 33.5 g/dL (32.0-36.0); Mean Corpuscular Hemoglobin 33.5 pg (27.0-31.0); Mean Platelet Volume 6.9 fL (7.4-10.4); Platelet Count 216 10x3/uL (130-400); RBC Distribution Width 11.6 % (11.5-14.5); Red Blood Cell (RBC) Count 3.93 mill/uL (4.20-5.40); White Blood Cell (WBC) Count 3.8 10x3/uL (4.8-10.8)
[2022-10-05 13:33] LABS: ALT (SGPT) 14 U/L (8-55); AST (SGOT) 19 U/L (5-34); Albumin 3.9 g/dL (3.4-4.8); Alkaline Phosphatase 80 U/L (40-110); Anion Gap 12 mmol/L (10-20); BUN (Urea Nitrogen) 14 mg/dL (9.8-20.1); Bilirubin, Total 1.6 mg/dL (0.2-1.2); Calc. Creatinine Clearance 0 mL/min (70-130); Calcium 9.5 mg/dL (7.8-10.44); Carbon Dioxide 25 mmol/L (23-31); Chloride 106 mmol/L (98-107); Estimated GFR 69; Globulin 2.7 g/dL (2.4-3.5); Glucose 105 mg/dL (83-110); Potassium 3.7 mmol/L (3.5-5.1); Protein, Total 6.6 g/dL (5.8-8.1); Sodium 139 mmol/L (136-145)
== END 2022-10-05 14:28 ==
LOC: ERS 12:18
DX: L03.032 Cellulitis of left toe (principal); I11.0 Hypertensive heart disease with heart failure; I50.9 Heart failure, unspecified; I10 Essential (primary) hypertension; E78.5 Hyperlipidemia, unspecified; E11.9 Type 2 diabetes mellitus without complications; Z79.82 Long term (current) use of aspirin; Z79.84 Long term (current) use of oral hypoglycemic drugs; Z79.899 Other long term (current) drug therapy
CPT/HCPCS: 36415; 80053; 83605; 85025

== ENCOUNTER 2024-04-25 08:50 | Emergency (ER) | payer MEDICARE ==
[2024-04-25 09:24] LABS: #Basophils 0.03 10x3/uL (0.0-0.2); %Basophils 0.7 % (0.0-1.0); %Lymphocytes 21.2 % (21.0-51.0); %Monocytes 10.3 % (0.0-10.0); %Neutrophils 60.6 % (42.0-75.0); Hematocrit 38.1 % (36.0-47.0); Hemoglobin 12.9 g/dL (12.0-16.0); Mean Corpuscular HGB CONC 33.9 g/dL (32.0-36.0); Mean Corpuscular Hemoglobin 32.3 pg (27.0-31.0); Mean Corpuscular Volume 95.3 fL (78.0-98.0); Mean Platelet Volume 9.5 fL (7.4-10.4); Platelet Count 188 10x3/uL (130-400); RBC Distribution Width 12.6 % (11.5-14.5)
[2024-04-25 09:42] LABS: ALT (SGPT) 14 U/L (8-55); AST (SGOT) 19 U/L (5-34); Albumin 3.7 g/dL (3.4-4.8); Alkaline Phosphatase 95 U/L (40-110); Anion Gap 11 mmol/L (10-20); BUN (Urea Nitrogen) 10 mg/dL (9.8-20.1); Bilirubin, Total 1.3 mg/dL (0.2-1.2); Calc. Creatinine Clearance 0 mL/min (70-130); Calcium 9.5 mg/dL (7.8-10.44); Carbon Dioxide 24 mmol/L (23-31); Chloride 106 mmol/L (98-107); Estimated GFR 76; Globulin 2.7 g/dL (2.4-3.5); Glucose 151 mg/dL (83-110); Lipase 17 U/L (8-78); Magnesium 1.9 mg/dL (1.6-2.6); Potassium 3.6 mmol/L (3.5-5.1); Protein, Total 6.4 g/dL (5.8-8.1); Sodium 137 mmol/L (136-145)
[2024-04-25 09:48] LABS: Troponin I 0.011 ng/mL (< 0.028)
[2024-04-25] MEDS ORDERED: Acetaminophen 500 MG TAB ONE (09:51)
[2024-04-25 10:23] LABS: Influenza A by NAA Not Detected (NotDetected); Influenza B by NAA Not Detected (NotDetected); SARS-CoV-2 NAA Rapid Test Not Detected (NotDetected)
[2024-04-25 12:40] LABS: Troponin I Less than 0.010 ng/mL (< 0.028)
== END 2024-04-25 13:06 | disposition home or self-care (01) ==
LOC: ERS 08:50
DX: R05.9 Cough, unspecified (principal); I11.0 Hypertensive heart disease with heart failure; I50.9 Heart failure, unspecified; I25.10 Atherosclerotic heart disease of native coronary artery without angina pectoris; E11.9 Type 2 diabetes mellitus without complications; I48.91 Unspecified atrial fibrillation; J45.909 Unspecified asthma, uncomplicated; E78.5 Hyperlipidemia, unspecified; Z79.01 Long term (current) use of anticoagulants; Z79.82 Long term (current) use of aspirin; Z79.84 Long term (current) use of oral hypoglycemic drugs; Z79.899 Other long term (current) drug therapy; Z95.0 Presence of cardiac pacemaker
CPT/HCPCS: 0240U; 71046; 80053; 83690; 83735; 83880; 84484 ×2; 85025; 93005; 36415